=== PATIENT | male | born 1955 | race Hispanic/Latino ===

== ENCOUNTER → 2018-10-24 | Outpatient (CLI) | payer OTHER ==
[~2018-10-24] MED LIST: BACTRIM DS TAB1 EACH PO; DICLOFENAC POTA50 MG PO; SERTRALINE HCL25 MG PO; ZANTAC150 MG PO
== END ==
LOC: DX 15:21 → EDSTATUS 10-30 10:00
PROVIDERS: ATTEND Internal Medicine Gastroenterology
DX: Z01.818 Encounter for other preprocedural examination (principal); Z12.11 Encounter for screening for malignant neoplasm of colon; E66.3 Overweight; R12 Heartburn
CPT/HCPCS: 93005

== ENCOUNTER → 2018-11-27 | Day surgery (SDC) | payer OTHER ==
[~2018-11-27] MED LIST changes: +FENTANYL CITRATE/PF 100MCG/2 ML INJ ONE; +MIDAZOLAM HCL 2 MG/2 ML VIAL ONE; +PROPOFOL IV EMULSION 10 MG/ML 50 ML VIAL ONE
--- OUTSIDE RECORDS SUMMARY | 2018-11-27 07:33 | XMS REPORT | Clinical Summary ---
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 Last Filed Vital Signs Not on file Plan of Treatment Health Maintenance Due Date Last Done Comments COLON CANCER SCREENING 2007 SHINGLES VACCINES (1 of 2007 2) INFLUENZA VACCINE 06/18/2018 Results Not on fileafter 11/26/2017 Advance Directives Patient has advance care planning documents on file. For more information, gale gomez contact: Richar Bustillos [address] [place] [address]
[2018-11-27 09:00] VITALS: BP 108/65
== END | disposition home or self-care (01) ==
LOC: OR 07:31
PROVIDERS: ATTEND Internal Medicine Gastroenterology
DX: Z12.11 Encounter for screening for malignant neoplasm of colon (principal); K29.50 Unspecified chronic gastritis without bleeding; B96.81 Helicobacter pylori [H. pylori] as the cause of diseases classified elsewhere; K22.70 Barrett's esophagus without dysplasia; K21.9 Gastro-esophageal reflux disease without esophagitis; K57.30 Diverticulosis of large intestine without perforation or abscess without bleeding; K64.8 Other hemorrhoids; K44.9 Diaphragmatic hernia without obstruction or gangrene; E66.3 Overweight; F41.9 Anxiety disorder, unspecified; Z88.0 Allergy status to penicillin; Z68.27 Body mass index [BMI] 27.0-27.9, adult
CPT/HCPCS: 43239; 45378; J2250